=== PATIENT | female | born 1975 | race Two or more races ===

== ENCOUNTER 2019-04-25 12:18 | Emergency (ER) | payer OTHER ==
[2019-04-25 12:29] VITALS: BMI 38.5
[2019-04-25] MEDS ORDERED: SODIUM CHLORIDE 1,000 ML IV STA (13:24)
[2019-04-25] MEDS ORDERED: ACETAMINOPHEN 1000 MG/100 ML VIAL (NON FORMULARY) IVPB ONE (13:24)
--- NOTE | 2019-04-25 13:24 | PDOC ---
History of Present Illness - General History Source: Patient Exam Limitations: No Limitations <Tamar Hawkins - Last Filed: 04/26/19 08:14> <Jax Rinaldi - Last Filed: 04/30/19 08:28> - General Chief Complaint: Pain Stated Complaint: ABD PAIN/ VAGINAL BLEED Time Seen by Provider: 04/25/19 12:38 Past History - Travel Traveled outside of the country in the last 30 days: No Close contact w/someone who was outside of country & ill: No - Past Medical History COPD: No - Psycho Social/Smoking Cessation Hx Smoking History: Never smoked <Tamar Hawkins - Last Filed: 04/26/19 08:14> <Jax Rinaldi - Last Filed: 04/30/19 08:28> - Past Medical History Allergies/Adverse Reactions: Allergies Allergy/AdvReac Type Severity Reaction Status Date / Time No Known Allergies Allergy Verified 04/25/19 12:29 Home Medications: Ambulatory Orders Ibuprofen 600 mg PO QID PRN #20 tablet 04/25/19 Tramadol HCl 50 mg PO TID PRN #7 tablet MDD 3 04/25/19 Review of Systems - Review of Systems Able to Perform ROS?: Yes Comments:: 04/25/19 18:46 CONSTITUTIONAL: Absent: fever, chills, diaphoresis, generalized weakness, malaise, loss of appetite HEENT: Absent: rhinorrhea, nasal congestion, throat pain, throat swelling, difficulty swallowing, mouth swelling, ear pain, eye pain, visual Changes CARDIOVASCULAR: Absent: chest pain, loss of consciousness, palpitations, irregular heart rate, peripheral edema RESPIRATORY: Absent: cough, shortness of breath, dyspnea with exertion, orthopnea, wheezing, stridor, hemoptysis GASTROINTESTINAL: Present: Abdominal pain, nausea and vomiting. Absent: abdominal pain, abdominal distension, nausea, vomiting, diarrhea, constipation, melena, hematochezia GENITOURINARY: Absent: dysuria, frequency, urgency, hesitancy, hematuria, flank pain, genital pain MUSCULOSKELETAL: Absent: myalgia, arthralgia, joint swelling SKIN: Absent: rash, itching, pallor NEUROLOGIC: Absent: headache, focal weakness or paresthesias, dizziness, unsteady gait, seizure, mental status changes, bladder or bowel incontinence PSYCHIATRIC: Absent: anxiety, depression, suicidal or homicidal ideation, hallucinations. Is the patient limited Vietnamese proficient: No <Tamar Hawkins - Last Filed: 04/26/19 08:14> *Physical Exam - Vital Signs Last Vital Signs Temp Pulse Resp BP Pulse Ox 98 F 97 H 18 132/73 99 04/25/19 12:25 04/25/19 12:25 04/25/19 12:25 04/25/19 12:25 04/25/19 12:25 - Physical Exam 04/25/19 18:46 GENERAL: Well developed, well nourished. Awake and alert. No acute distress. HEENT: Normocephalic, atraumatic. PERRLA, EOMI. No conjunctival pallor. Sclera are non- icteric. Moist mucous membranes. Oropharynx is clear. NECK: Supple. Full ROM. No JVD. Carotid pulses 2+ and symmetric, without bruits. No thyromegaly. No lymphadenopathy. CARDIOVASCULAR: Regular rate and rhythm. No murmurs, rubs, or gallops. Distal pulses are 2+ and symmetric. PULMONARY: No evidence of respiratory distress. Lungs clear to auscultation bilaterally. No wheezing, rales or rhonchi. ABDOMINAL: Patient with suprapubic tenderness and right lower quadrant tenderness. Negative Rovsing sign. Soft. Non-distended. No rebound or guarding. No organomegaly. Normoactive bowel sounds. MUSCULOSKELETAL Normal range of motion at all joints. No bony deformities or tenderness. No CVA tenderness. EXTREMITIES: No cyanosis. No clubbing. No edema. No calf tenderness. SKIN: Warm and dry. Normal capillary refill. No rashes. No jaundice. NEUROLOGICAL: Alert, awake, appropriate. Cranial nerves 2-12 intact. No deficits to light touch and temperature in face, upper extremities and lower extremities. No motor deficits in the in face, upper extremities and lower extremities. Normoreflexic in the upper and lower extremities. Normal speech. Toes are down- going bilaterally. Gait is normal without ataxia. PSYCHIATRIC: Cooperative. Good eye contact. Appropriate mood and affect. <Tamar Hawkins - Last Filed: 04/26/19 08:14> - Vital Signs Last Vital Signs Temp Pulse Resp BP Pulse Ox 98.1 F 73 16 137/91 100 04/25/19 21:25 04/25/19 21:25 04/25/19 21:25 04/25/19 21:25 04/25/19 21:25 <Jax Rinaldi - Last Filed: 04/30/19 08:28> ED Treatment Course - LABORATORY CBC & Chemistry Diagram: 04/25/19 15:55 04/25/19 15:55 <Tamar Hawkins - Last Filed: 04/26/19 08:14> - LABORATORY CBC & Chemistry Diagram: 04/25/19 15:55 04/25/19 15:55 - ADDITIONAL ORDERS Additional order review: 04/25/19 15:55 Urine Culture - Final Urine - Urine Clean Catch Normal Urogenital Sharon 04/25/19 15:55 RBC 4.18 MCV 88.7 MCHC 33.4 RDW 14.7 MPV 8.2 Neutrophils % 72.5 Lymphocytes % 19.5 Monocytes % 6.2 Eosinophils % 1.2 Basophils % 0.6 - Medications Given in the ED: ED Medications Discontinued Medications Generic Name Dose Route Start Last Admin Trade Name Jonny PRN Reason Stop Dose Admin Acetaminophen 1,000 mg 04/25/19 13:24 04/25/19 14:33 Ofirmev Injection - IVPB 04/25/19 13:25 1,000 mg ONCE ONE Administration Sodium Chloride 1,000 mls @ 1,000 mls/hr 04/25/19 13:24 04/25/19 14:31 Normal Saline - IV 04/25/19 14:23 1,000 mls/hr ASDIR STA Administration Ketorolac Tromethamine 30 mg 04/25/19 20:24 04/25/19 20:32 Toradol Injection - IVPUSH 04/25/19 20:25 30 mg ONCE ONE Administration Morphine Sulfate 4 mg 04/25/19 17:19 04/25/19 17:19 Morphine Injection - IVPUSH 04/25/19 17:20 4 mg ONCE ONE Administration <Jax Rinaldi - Last Filed: 04/30/19 08:28> Medical Decision Making - Medical Decision Making 04/25/19 18:47 Patient is a 43-year-old female with no past medical history, presents to the ER with 2 days of nausea, vomiting, lower abdominal pain and vaginal discharge. She states that the pain is mostly located in her lower abdomen and is sharp in nature. She states that she has noticed a clear vaginal discharge that feels "like water ". She states her last regular period was at the beginning of February. She notes that she had a menstrual cycle lasted briefly 2 days in March. She is not taking any medication for the pain. She denies surgical history. Denies fevers, chills, earache, chest pain, difficulty breathing, urinary symptoms and back pain. She is sexually active with one partner. A/P: Lower abdominal pain On exam patient with right lower quadrant pain and suprapubic tenderness. Negative Rovsing sign. Patient is uncomfortable on exam. Defer pelvic as patient refuses test. Basic labs, urine and ordered negative. Transvaginal exam and CTAP ordered Morphine ordered for increasing pain Pt currently in US Pt signed out to JAZMINE Crawford. <Tamar Hawkins - Last Filed: 04/26/19 08:14> - Medical Decision Making The patient was seen and evaluated in conjunction with KARINA Hawkins under my direct supervision, ancillary studies were reviewed. I agree with the plan as outlined by KARINA Hawkins . <Jax Rinaldi - Last Filed: 04/30/19 08:28> Discharge - Discharge Information Problems reviewed: Yes <Tamar Hawkins - Last Filed: 04/26/19 08:14> <Jax Rinaldi - Last Filed: 04/30/19 08:28> - Discharge Information Clinical Impression/Diagnosis: Ovarian cyst Qualifiers: Laterality: bilateral Qualified Code(s): N83.201 - Unspecified ovarian cyst, right side Condition: Good Disposition: HOME - Additional Discharge Information Prescriptions: Ibuprofen 600 mg PO QID PRN #20 tablet PRN Reason: Pain Tramadol HCl 50 mg PO TID PRN #7 tablet MDD 3 PRN Reason: Moderate Pain - Follow up/Referral Referrals: Rhea Trevino MD [Staff Physician] - Call tomorrow - Patient Discharge Instructions Patient Printed Discharge Instructions: Ovarian Cyst Additional Instructions: Return to the ER if you are soaking 2 pads per hour, severe abdominal pain, or worsening symptoms. it is important you take ibuprofen every 6 hours as needed for pain take tramadol for moderate pain as prescribed follow up with a retail banker as soon as possible. Regrese a la urgencia si est empapando 2 almohadillas por hora, dolor abdominal intenso o sntomas de empeoramiento. es importante que tome ibuprofeno cada 6 horas segn sea necesario para el dolor alexis tramadol para el dolor moderado segn lo prescrito seguimiento con un gineclogo lam pronto zion sea posible. - Post Discharge Activity Work/Back to School Note: Back to Work
[2019-04-25] MEDS ORDERED: ACETAMINOPHEN INJECTION 100 ML IVPB ONE (14:31)
[2019-04-25] MEDS ORDERED: ONDANSETRON 4 MG/2 ML VIAL ONE (14:32)
[2019-04-25] MEDS ORDERED: FAMOTIDINE 20 MG/50 ML IVPB 20 MG/50 ML MG IVPB ONE (14:32)
[2019-04-25 16:05] LABS: BASO % 0.6 % (0-2.0); EOS % 1.2 % (0-4.5); HEMATOCRIT 37.1 % (32.4-45.2); HEMOGLOBIN 12.4 GM/dL (10.7-15.3); LYMPH % 19.5 % (8-40); MCH 29.6 pg (25.7-33.7); MCHC 33.4 g/dl (32.0-36.0); MEAN CELL VOLUME 88.7 fl (80-96); MEAN PLT VOLUME 8.2 fl (7.5-11.1); MONO % 6.2 % (3.8-10.2); NEUT % 72.5 % (42.8-82.8); PLATELET COUNT 399 K/MM3 (134-434); RBC 4.18 M/mm3 (3.60-5.2); RDW 14.7 % (11.6-15.6); WHITE BLOOD COUNT 7.6 K/mm3 (4.0-10.0)
[2019-04-25 16:13] LABS: PH,URINE 7.5 (5.0-8.0); URINE APPEARANCE CLEAR; URINE BILIRUBIN NEGATIVE (NEGATIVE); URINE COLOR YELLOW; URINE GLUCOSE (UA) NEGATIVE (NEGATIVE); URINE KETONE NEGATIVE (NEGATIVE); URINE LEUK ESTERASE NEGATIVE (NEGATIVE); URINE NITRITE NEGATIVE (NEGATIVE); URINE PROTEIN NEGATIVE (NEGATIVE); URINE UROBILINOGEN 0.2 mg/dL (0.2-1.0)
[2019-04-25 16:17] LABS: INR 0.94 (0.83-1.09); PROTHROMBIN TIME (PATIENT) 11.1 SEC (9.7-13.0)
[2019-04-25 16:33] LABS: ALBUMIN 3.8 g/dl (3.4-5.0); BILIRUBIN,TOTAL 0.2 mg/dL (0.2-1); BLOOD UREA NITROGEN 8.2 mg/dL (7-18); CALCIUM 9.3 mg/dL (8.5-10.1); CREATININE 0.6 mg/dL (0.55-1.3); POTASSIUM 4.4 mmol/L (3.5-5.1); TOT PROT 6.7 g/dl (6.4-8.2)
[2019-04-25] MEDS ORDERED: morphine CARPU-JECT 4 MG/1 ML DISP.SYRIN IVPUSH ONE (17:19)
[2019-04-25] MEDS ORDERED: morphine SULFATE 4 MG/ML VIAL ONE (18:35)
--- NOTE | 2019-04-25 19:58 | PDOC ---
*Physical Exam - Vital Signs Last Vital Signs Temp Pulse Resp BP Pulse Ox 98 F 97 H 18 132/73 99 04/25/19 12:25 04/25/19 12:25 04/25/19 12:25 04/25/19 12:25 04/25/19 12:25 - Physical Exam General Appearance: Yes: Appropriately Dressed ED Treatment Course - LABORATORY CBC & Chemistry Diagram: 04/25/19 15:55 04/25/19 15:55 - ADDITIONAL ORDERS Additional order review: Laboratory Results 04/25/19 04/25/19 04/25/19 15:55 15:55 15:55 PT with INR INR Sodium 141 Potassium 4.4 Chloride 110 H Carbon Dioxide 26 Anion Gap 5 L BUN 8.2 Creatinine 0.6 Est GFR (CKD-EPI)AfAm 128.48 Est GFR (CKD-EPI)NonAf 110.86 Random Glucose 83 Calcium 9.3 Total Bilirubin 0.2 AST 13 L ALT 23 Alkaline Phosphatase 84 Total Protein 6.7 Albumin 3.8 Serum , Qual Negative Urine Color Yellow Urine Appearance Clear Urine pH 7.5 Ur Specific [place] 1.006 L Urine Protein Negative Urine Glucose (UA) Negative Urine Ketones Negative Urine Blood Negative Urine Nitrite Negative Urine Bilirubin Negative Urine Urobilinogen 0.2 Ur Leukocyte Esterase Negative 04/25/19 15:55 PT with INR 11.10 INR 0.94 Sodium Potassium Chloride Carbon Dioxide Anion Gap BUN Creatinine Est GFR (CKD-EPI)AfAm Est GFR (CKD-EPI)NonAf Random Glucose Calcium Total Bilirubin AST ALT Alkaline Phosphatase Total Protein Albumin Serum , Qual Urine Color Urine Appearance Urine pH Ur Specific [place] Urine Protein Urine Glucose (UA) Urine Ketones Urine Blood Urine Nitrite Urine Bilirubin Urine Urobilinogen Ur Leukocyte Esterase 04/25/19 15:55 RBC 4.18 MCV 88.7 MCHC 33.4 RDW 14.7 MPV 8.2 Neutrophils % 72.5 Lymphocytes % 19.5 Monocytes % 6.2 Eosinophils % 1.2 Basophils % 0.6 - Medications Given in the ED: ED Medications Discontinued Medications Generic Name Dose Route Start Last Admin Trade Name Freq PRN Reason Stop Dose Admin Acetaminophen 1,000 mg 04/25/19 13:24 04/25/19 14:33 Ofirmev Injection - IVPB 04/25/19 13:25 1,000 mg ONCE ONE Administration Sodium Chloride 1,000 mls @ 1,000 mls/hr 12/02/19 13:24 04/25/19 14:31 Normal Saline - IV 04/25/19 14:23 1,000 mls/hr ASDIR STA Administration Medical Decision Making - Medical Decision Making 04/25/19 21:08 CT abdomen normal appendix Ultrasound shows bilateral ovarian cyst. Discussed with patient in detail and management at home and follow-up with gynecology. [employer] commissions manager was used for this encounter. All discharge instructions were given to the patient. Patient verbalized understanding. Strict return precautions were reviewed with patient Discharge - Discharge Information Problems reviewed: Yes Clinical Impression/Diagnosis: Ovarian cyst Qualifiers: Laterality: bilateral Qualified Code(s): N83.201 - Unspecified ovarian cyst, right side Disposition: HOME - Additional Discharge Information Prescriptions: Ibuprofen 600 mg PO QID PRN #20 tablet PRN Reason: Pain Tramadol HCl 50 mg PO TID PRN #7 tablet MDD 3 PRN Reason: Moderate Pain - Follow up/Referral Referrals: Rhea Trevino MD [Staff Physician] - Call tomorrow - Patient Discharge Instructions Patient Printed Discharge Instructions: Ovarian Cyst Additional Instructions: Return to the ER if you are soaking 2 pads per hour, severe abdominal pain, or worsening symptoms. it is important you take ibuprofen every 6 hours as needed for pain take tramadol for moderate pain as prescribed follow up with a social media specialist as soon as possible. Regrese a la urgencia si est empapando 2 almohadillas por hora, dolor abdominal intenso o sntomas de empeoramiento. es importante que tome ibuprofeno cada 6 horas segn sea necesario para el dolor alexis tramadol para el dolor moderado segn lo prescrito seguimiento con un gineclogo lam pronto zion sea posible. - Post Discharge Activity Work/Back to School Note: Back to Work
[2019-04-25] MEDS ORDERED: KETOROLAC TROMETHAMINE 30 MG/1 ML VIAL IVPUSH ONE (20:24)
[2019-04-25] MEDS ORDERED: KETOROLAC TROMETHAMINE 30 MG/1 ML VIAL ONE (21:17)
[2019-04-25 22:54] VITALS: PULSE 73; TEMP 98.1
[2019-04-25 22:57] VITALS: BP 137/91
== END 2019-04-25 21:30 | disposition home or self-care (01) ==
LOC: JER 12:18
PROC: 3E0337Z Introduction of Electrolytic and Water Balance Substance into Peripheral Vein, Percutaneous Approach (ICD-10-PCS; principal; 2019-04-25)
PROC: 3E033NZ Introduction of Analgesics, Hypnotics, Sedatives into Peripheral Vein, Percutaneous Approach (ICD-10-PCS; 2019-04-25)
PROC: 3E033NZ Introduction of Analgesics, Hypnotics, Sedatives into Peripheral Vein, Percutaneous Approach (ICD-10-PCS; 2019-04-25)
PROC: 3E0333Z Introduction of Anti-inflammatory into Peripheral Vein, Percutaneous Approach (ICD-10-PCS; 2019-04-25)
DX: N83.201 Unspecified ovarian cyst, right side (principal); N83.202 Unspecified ovarian cyst, left side
CPT/HCPCS: 36415; 74177-TC; 76830-TC; 80053; 81003; 84703; 85025; 85610; 87086; 96361; 96374; 96375; 99284-25; J0131; J7030; Q9967

== ENCOUNTER 2019-05-14 10:11 | Emergency (ER) | payer OTHER ==
--- NOTE | 2019-05-14 10:41 | PDOC ---
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 Patient reports taking over-the- counter TheraFlu with minimal improvement. Denies recent travel or sick contact. Denies any other symptoms Is this a multiple visit Asthma Patient?: No Timing/Duration: other (5 days) Past History - Past Medical History Allergies/Adverse Reactions: Allergies Allergy/AdvReac Type Severity Reaction Status Date / Time No Known Allergies Allergy Verified 05/14/19 10:21 Home Medications: Ambulatory Orders Amox-Tr/K Cl [Augmentin - 500Mg Tablet] 1 tab PO BID #14 tab 05/14/19 Bupropion HCl [Wellbutrin Xl -] 300 mg PO DAILY 05/14/19 Ipratropium [place] 2 spray NS BID PRN #1 spray 05/14/19 LORazepam [Ativan] 1 mg PO BID 05/14/19 [place] Carbonate [Eskalith -] 150 mg PO BID 05/14/19 Loperamide HCl [Loperamide] 2 mg PO Q8H PRN #12 capsule 05/14/19 Methylprednisolone [Medrol Dose [place]] 4 mg PO ASDIR #21 tablet 05/14/19 COPD: No - Psycho Social/Smoking Cessation Hx Smoking History: Never smoked Hx Alcohol Use: No Drug/Substance Use Hx: No Review of Systems - Review of Systems Able to Perform ROS?: Yes Is the patient limited Chinese proficient: No Constitutional: Yes: Fever (tactile), Malaise HEENTM: Yes: Symptoms Reported, See HPI, Throat Pain, Difficulty Swallowing. No : Eye Pain, Blurred Vision, Tearing, Recent change in vision, Double Vision, Cataracts, Ear Pain, Ocular Prothesis, Ear Discharge, Nose Pain, Nose Congestion , Tinnitus, Nose Bleeding, Hearing Loss, Throat Swelling, Mouth Pain, Dental Problems, Mouth Swelling, Other Respiratory: Yes: Symptoms reported, See HPI, Cough. No: Orthopnea, Shortness of Breath, SOB with Exertion, SOB at Rest, Stridor, Wheezing, Productive cough, Hemoptysis, Other Cardiac (ROS): No: Symptoms Reported, See HPI, Chest Pain, Edema, Irregular Heart Rate, Lightheadedness, Palpitations, Syncope, Chest Tightness, Other ABD/GI: No: Symptoms Reported, Nausea, Vomiting Musculoskeletal: No: Symptoms Reported Integumentary: No: Symptoms Reported, Rash Neurological: No: Symptoms reported, Headache, Seizure, Ataxia All Other Systems: Reviewed and Negative *Physical Exam - Vital Signs Last Vital Signs Temp Pulse Resp BP Pulse Ox 99.2 F 82 16 146/68 99 05/14/19 10:21 05/14/19 10:21 05/14/19 10:21 05/14/19 10:21 05/14/19 10:21 - Physical Exam 05/14/19 11:04 GENERAL: Well developed, well nourished. Awake and alert. No acute distress. HEENT: Mild erythema to right ear canal. Left ear canal normal. Tympanic membrane normal bilateral. Normocephalic, atraumatic. PERRLA, EOMI. No conjunctival pallor. Sclera are non-icteric. Moist mucous membranes. Oropharynx is clear. NECK: Supple. Full ROM. CARDIOVASCULAR: Regular rate and rhythm. No murmurs, rubs, or gallops. Distal pulses are 2+ and symmetric. PULMONARY: No evidence of respiratory distress. Lungs clear to auscultation bilaterally. No wheezing, rales or rhonchi. ABDOMINAL: Soft. Non-tender. Non-distended. No rebound or guarding. No organomegaly. Normoactive bowel sounds. MUSCULOSKELETAL Normal range of motion at all joints. SKIN: Warm and dry. Normal capillary refill. No rashes. NEUROLOGICAL: Alert, awake, appropriate. Gait is normal without ataxia. PSYCHIATRIC: Cooperative. Good eye contact. Appropriate mood General Appearance: Yes: Nourished, Appropriately Dressed. No: Apparent Distress Medical Decision Making - Medical Decision Making 05/14/19 11:02 Patient with history of bipolar depression on meds presented with complaint of 5 -day history of sore throat, nasal congestion, bilateral ear pain, tactile fever , diarrhea, malaise and painful to swallow. Patient reports taking over-the- counter TheraFlu with minimal improvement. Denies recent travel or sick contact. Denies any other symptoms Exam was significant for mild erythema right external ear canal with normal tympanic membrane. Left ear canal normal. Patient afebrile. Lungs clear to auscultation bilateral and normal cardio exam. Normal abdominal exam. Symptoms likely strep with gastroenteritis versus viral gastroenteritis with otitis externa. Rapid strep ordered to rule out strep pharyngitis 05/14/19 11:33 Rapid strep negative. Patient stable for outpatient management on Augmentin for otitis externa with pharyngitis and loperamide as needed for diarrhea. 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 HIV negative. Patient stable for discharge Discharge - Discharge Information Problems reviewed: Yes Clinical Impression/Diagnosis: Gastroenteritis URI (upper respiratory infection) Qualifiers: URI type: unspecified viral URI Qualified Code(s): J06.9 - Acute upper respiratory infection, unspecified Right otitis externa Qualifiers: Otitis externa type: unspecified type Chronicity: acute Qualified Code(s): H60.501 - Unspecified acute noninfective otitis externa, right ear Pharyngitis Qualifiers: Pharyngitis/tonsillitis etiology: unspecified etiology Qualified Code(s): J02.9 - Acute pharyngitis, unspecified Condition: Stable Disposition: HOME - Admission No - Additional Discharge Information Prescriptions: Amox-Tr/K Cl [Augmentin - 500Mg Tablet] 1 tab PO BID #14 tab Ipratropium [place] 2 spray NS BID PRN #1 spray PRN Reason: nasal congestion Loperamide HCl [Loperamide] 2 mg PO Q8H PRN #12 capsule PRN Reason: diarrhea Methylprednisolone [Medrol Dose [place]] 4 mg PO ASDIR #21 tablet - Follow up/Referral - Patient Discharge Instructions Patient Printed Discharge Instructions: DI for Viral Upper Respiratory Infection -- Adult, DI for Otitis Externa Additional Instructions: Strep test is negative. Take prescribed medication as prescribed for ear pain and diarrhea. Increase fluid intake. Take Tylenol as needed for fever. Follow -up with primary care - Post Discharge Activity
[2019-05-14 10:49] VITALS: BP 146/68; PULSE 82; TEMP 99.2; BMI 29.2
[2019-05-14] MEDS ORDERED: IBUPROFEN 400 MG TABLET (FP) PO ONE ×2 (12:36→13:04)
== END 2019-05-14 15:22 | disposition home or self-care (01) ==
LOC: JER 10:11
DX: K52.9 Noninfective gastroenteritis and colitis, unspecified (principal); J06.9 Acute upper respiratory infection, unspecified; H60.501 Unspecified acute noninfective otitis externa, right ear; J02.9 Acute pharyngitis, unspecified
CPT/HCPCS: 36415; 86593; 86694; 86695; 86696; 87070; 87389; 87880; 99282-25